=== PATIENT | female | born 1990 | race Caucasian/White ===

== ENCOUNTER 2017-06-01 00:10 | Emergency (ER) | payer SELFPAY ==
[~2017-06-01] VITALS: Ht 165.1 cm; Wt 65.8 kg
[2017-06-01 00:16] VITALS: BP 101/58
--- NOTE | 2017-06-01 00:48 | Emergency Room Report ---
History of Present Illness General Chief Complaint: Toothache Source: Patient, EMS Present Illness HPI Patient presents with complaints of right back molar dental pain reports of the pain started 2 days ago Denies any trauma denies any fevers or chills Denies any trismus Denies any posterior neck pain Pain is 3 out of 10 worse with chewing Allergies: Coded Allergies: No Known Allergies (Unverified , 06/01/17) Patient History Past Medical History: see triage record Pertinent Family History: none Last Menstrual Period: 05/29/2017 Now: No Reviewed Nursing Documentation: PMH: Agreed; PSxH: Agreed Nursing Documentation-PMH Past Medical History: No Stated History Review of Systems All Other Systems: negative except mentioned in HPI Physical Exam Vital Signs Date Time Temp Pulse Resp B/P (MAP) Pulse Ox O2 Delivery O2 Flow Rate FiO2 06/01/17 00:10 97.5 55 16 101/58 98 Room Air 97.5 Sp02 EP Interpretation: reviewed, normal General Appearance: no apparent distress Head: normocephalic, atraumatic Eyes: bilateral eye PERRL, bilateral eye EOMI ENT: normal pharynx, no angioedema, other - No obvious dental decay however the patient points to the right back molar dental region for the discomfort. No gingival erythema Neck: supple Respiratory: lungs clear Cardiovascular #1: regular rate, rhythm, no murmur Musculoskeletal: normal inspection Neurologic: alert, oriented x3, responsive Skin: normal color, no rash Lymphatic: no adenopathy Medical Decision Making Diagnostic Impression: Primary Impression: Toothache Additional Impression: Dental caries ER Course Given the patient's history and presentation No obvious abscess appreciated No signs of trismus Given the pain in the duration patient is initially initiated on antibiotics and requires close dental follow-up Last Vital Signs Date Time Temp Pulse Resp B/P (MAP) Pulse Ox O2 Delivery O2 Flow Rate FiO2 06/01/17 00:16 97.5 55 16 101/58 98 Room Air 97.5 Status: unchanged Disposition: HOME, SELF-CARE Condition: Stable Additional Instructions: Patient is provided with the discharge instructions notified to follow up with primary doctor in the next 2-3 days otherwise return to the er with any worsening symptoms. Please note that this report is being documented using [employer] technology. This can lead to erroneous entry secondary to incorrect interpretation by the dictating instrument. Meenu Huber DO Jun 01, 2017 00:48
[2017-06-01] MEDS ORDERED: IBUPROFEN600 MG ORAL (00:49)
[2017-06-01] MEDS ORDERED: AMOXICILLIN500 MG ORAL (00:49)
[2017-06-01 00:53] VITALS: BP 101/58
== END 2017-06-01 00:55 | disposition home or self-care (01) ==
LOC: EDBD 00:10 → EMR 00:25
DX: K08.89 Other specified disorders of teeth and supporting structures (principal); K02.9 Dental caries, unspecified
CPT/HCPCS: 99283